=== PATIENT | female | born 1935 | race Caucasian/White ===

== ENCOUNTER 2016-07-06 09:44 | Emergency (ER) | payer MEDICARE ==
[~2016-07-06] VITALS: Ht 170.2 cm; Wt 53.0 kg
[~2016-07-06 09:44] MED LIST: ALBU6.7H INH; APIX5 PO; CALC600T12 PO; LUTE1CAP PO; SALT TABLET; Z.0.OXYGENDME NC
[2016-07-06 09:46] VITALS: BP 140/63; PULSE 67; RESP 18; TEMP 98.3; O2SAT 98
[2016-07-06] MEDS ORDERED: [UNRECOGNIZED DRUG - SUPPLY] (10:09)
[2016-07-06] MEDS ORDERED: CALC1TAB87 PO (10:09)
[2016-07-06] MEDS ORDERED: APIX5TAB PO (10:09)
[2016-07-06] MEDS ORDERED: [UNRECOGNIZED DRUG - CODE] PO (10:09)
[2016-07-06] MEDS ORDERED: ALBU6.7H INH (10:09)
--- NOTE | 2016-07-06 10:57 | PD ---
HPI Chief Complaint: Head Injury Time Seen by Provider: 10:36 Travel History International Travel<30 days: No Contact w/Intl Traveler<30days: No Traveled to known affect area: No History of Present Illness HPI The patient was seen and examined in the presence of the nurse. This patient was bouncing on an exercise ball at the gym and fell backwards and struck the back of her head. She has some "soreness" there but no LOC. No neck pain. She does take Eliquis for history of blood clot. Symptoms severity is mild to moderate. Duration 1 hour. She has a laceration there. No alleviating factors PFSH Past Medical History Hx Anticoagulant Therapy: Yes (eloquis) Arthritis: Yes (FINGERS) Asthma: No Autoimmune Disease: No Blood Disorders: No Heart Rhythm Problems: No Cancer: Yes (BREAST CANCER) Cardiovascular Problems: No High Cholesterol: Yes Chemotherapy: No Congestive Heart Failure: No COPD: Yes Cerebrovascular Accident: No Diabetes: No Diminished Hearing: No Endocrine: No GERD: No Glaucoma: No Genitourinary: No Hepatitis: No Hiatal Hernia: No Hypertension: No Immune Disorder: No Kidney Stones: No Musculoskeletal: Yes (FX LEFT RADIUS,HX COMPRESSION FX ) Neurologic: No Psychiatric: No Reproductive: No Respiratory: Yes (PE in August) Myocardial Infarction: No Radiation Therapy: No Renal Failure: No Seizures: No Sleep Apnea: No Thyroid Disease: No Ulcer: No Tetanus Vaccination: Unknown ?: Not Past Surgical History Abdominal Surgery: No AICD: No Cardiac Surgery: No Ear Surgery: No Endocrine Surgery: No Eye Surgery: Yes (BILATERAL CATARCTS) Genitourinary Surgery: No Oral Surgery: No Pacemaker: No Thoracic Surgery: Yes (BILATERAL MASTECTOMIES) Other Surgery: Yes Social History Alcohol Use: Yes (occassional) Tobacco Use: No Substance Use: No Allergies-Medications (Allergen,Severity, Reaction): Coded Allergies: No Known Allergies (Unverified , 07/06/16) Reported Meds & Prescriptions Reported Meds & Active Scripts Active Reported [Oxygen Device] 2 Liter HS Viteyes Essentials (Wlohny-Foseudvvrc-Hzxhymes) 15-4.75-100 Mg-Mg-Mcg Cap 1 Cap PO DAILY Calcium 600 with Vitamin D (Calcium Carbonate-Cholecalciferol) 600-400 mg-Unit Tab 1 Tab PO DAILY Eliquis (Apixaban) 5 Mg Tab 5 Mg PO BID Proventil Hfa 6.7 GM Inh (Albuterol Sulfate) 90 Mcg/Act Aer 2 Puff INH Q6H PRN Review of Systems General / Constitutional: No: Fever Eyes: No: Visual changes HENT: Positive: Headaches Cardiovascular: No: Chest Pain or Discomfort Respiratory: No: Shortness of Breath Gastrointestinal: No: Abdominal Pain Genitourinary: No: Dysuria Musculoskeletal: No: Pain Skin: No Rash Neurologic: Positive: Headache, No: Weakness Psychiatric: No: Depression Endocrine: No: Polydipsia Hematologic/Lymphatic: No: Easy Bruising Physical Exam Narrative GENERAL: Well-nourished, well-developed patient in no apparent distress. SKIN: Focused skin assessment reveals no rash and nodules. Skin is Warm and dry. HEAD: Has 1.5 cm laceration to the occiput . Normocephalic. EYES: Pupils equal and round. No scleral icterus. No injection or drainage. ENT: No nasal bleeding or discharge. Mucous membranes pink and moist. NECK: Trachea midline. No JVD. No midline tenderness CARDIOVASCULAR: Regular rate and rhythm. No murmur appreciated. RESPIRATORY: No accessory muscle use. Clear to auscultation. Breath sounds equal bilaterally. GASTROINTESTINAL: Abdomen soft, non-tender, nondistended. Hepatic and splenic margins not palpable. MUSCULOSKELETAL: No obvious deformities. No clubbing. No cyanosis. No edema. NEUROLOGICAL: Awake and alert. No obvious cranial nerve deficits. Motor grossly within normal limits. Normal speech. PSYCHIATRIC: Appropriate mood and affect; insight and judgment normal. Data Data Last Documented VS Vital Signs Date Time Temp Pulse Resp B/P Pulse Ox O2 Delivery O2 Flow Rate FiO2 07/06/16 09:46 98.3 67 18 140/[address] Brain W/O Iv Contrast(Rout) (07/06/16 ) [facility] Medical Decision Making Medical Screen Exam Complete: Yes Emergency Medical Condition: Yes Medical Record Reviewed: Yes Differential Diagnosis Intracranial hemorrhage, concussion, skull fracture Narrative Course I have reviewed the patient's electronic medical record. Patient was here for hypoxemia July 2015 Patient was oxygen night but has saturations of 96% She is neurologically intact We discussed options but given the fact that she does have mild headache and takes a blood thinner and is 81 years old I've ordered brain CT to rule out hemorrhage LACERATION LOCATION: Occiput LENGTH: 1.5 cm NUMBER OF STITCHES/ZAINAB: 2 zainab REPAIR: The area of the laceration was prepped with Betadine and sterilely draped. No anesthesia needed. The wound was copiously irrigated and explored without evidence of foreign body, tendon injury or neurovascular injury. The wound was closed using 2 zainab in a single layer repair. The patient was advised to keep the area clean and dry. Patient tolerated the procedure well. Brain CT shows some nonspecific white matter changes but no acute injury Diagnosis Primary Impression: Head injury due to trauma Qualified Code: S09.90XA - Head injury due to trauma, initial encounter Additional Impression: Laceration of scalp without complication Qualified Code: S01.01XA - Laceration of scalp without complication, initial encounter Additional Instructions: The patient was advised to follow up with their physician and return if they worsen. [place] out in 10 days Med/Other Pt SpecificInfo: Other Disposition: 01 DISCHARGE HOME Condition: Stable Nicolás Higginbotham MD July 06, 2016 10:57
--- NOTE | 2016-07-06 11:30 | RADRPT ---
EXAM DATE/TIME: 07/06/2016 11:09 [facility] COMPARISON: No previous studies available for comparison. INDICATIONS : Trauma to the back of the head 9 am today. RADIATION DOSE: 34.07 CTDIvol (mGy) MEDICAL HISTORY : Carcinoma, breast. SURGICAL HISTORY : Mastectomy, bilateral. COPD ENCOUNTER: Initial ACUITY: 1 day PAIN SCALE: 1/10 LOCATION: TECHNIQUE: Multiple contiguous axial images were obtained of the head. Using automated exposure control and adj ustment of the mA and/or kV according to patient size, radiation dose was kept as low as reasonably a chievable to obtain optimal diagnostic quality images. FINDINGS: CEREBRUM: The ventricles are normal for age. Low-density areas throughout the white matter. No evidence of midl ine shift, mass lesion, hemorrhage or acute infarction. No extra-axial fluid collections are seen. POSTERIOR FOSSA: The cerebellum and brainstem are intact. The 4th ventricle is midline. The cerebellopontine angle i s unremarkable. EXTRACRANIAL: The visualized portion of the orbits is intact. SKULL: The calvaria is intact. No evidence of skull fracture. CONCLUSION: Nonspecific white matter changes. No acute intracranial abnormality. Tin Fernando MD on July 06, 2016 at 11:27 Board Certified Radiologist. This report was verified electronically.
== END 2016-07-06 12:28 | disposition home or self-care (01) ==
LOC: NEPD 09:44
DX: S01.01XA Laceration without foreign body of scalp, initial encounter (principal); W17.89XA Other fall from one level to another, initial encounter; Y93.B9 Activity, other involving muscle strengthening exercises; Y92.39 Other specified sports and athletic area as the place of occurrence of the external cause
CPT/HCPCS: 12001; 70450